=== PATIENT | female | born 1955 | race Caucasian/White ===

== ENCOUNTER → 2023-11-05 13:04 | Outpatient (REF) | payer BC, SELFPAY | LOC: HWRAD 13:04 | PROVIDERS: ATTENDING PHYSICIAN Surgery Plastic and Reconstructive Surgery; FAMILY PHYSICIAN Emergency Medicine | DX: K46.9 Unspecified abdominal hernia without obstruction or gangrene (principal) | CPT/HCPCS: 74177; Q9967 ==

== ENCOUNTER → 2023-12-07 06:42 | Outpatient (REF) | payer BC, SELFPAY ==
[2023-12-07 07:50] LABS: % Basophils 0.5 % (0-2); % Eosinophils 1.8 % (0-6); % Immature Granulocytes 0.2 % (0-0.5); % Lymphocytes 31.5 % (20.5-51.1); % Monocytes 5.2 % (1.7-9.3); % Neutrophils 60.8 % (42.2-75.2); Absolute Eosinophils 0.1 10^3/uL (0-0.7); Absolute Lymphocytes 1.9 10^3/uL (1.2-3.4); Absolute Monocytes 0.3 10^3/uL (0.1-0.6); Absolute Neutrophils 3.7 10^3/uL (1.4-6.5); Hematocrit 38.8 % (37.0-47.0); Hemoglobin 12.6 g/dL (12.0-16.0); Mean Corp Hgb Conc. 32.5 g/dL (33.0-37.0); Mean Corpuscular Hgb 30.8 pg (27.0-31.0); Mean Corpuscular Volume 94.9 fL (81.0-99.0); Mean Platelet Volume 10.4 fL (7.4-10.4); Nucleated Red Blood Cells % 0 %; Platelet Count 221 10^3/uL (130-400); Red Blood Cell Count 4.09 10^6/uL (4.20-5.40); Red Cell Dist. Width 13.3 % (11.5-14.5); White Blood Cell Count 6.1 10^3/uL (4.8-10.8)
[2023-12-07 10:25] LABS: ALT (SGPT) < 10 U/L (0-35); AST (SGOT) 21 U/L (14-36); Albumin 4.4 g/dl (3.5-5.0); Alkaline Phosphatase 87 U/L (38-126); Blood Urea Nitrogen 12 mg/dl (7-17); Calcium 9.5 mg/dl (8.4-10.2); Carbon Dioxide 29 mmol/L (22-30); Chloride 101 mmol/L (98-107); Glucose 89 mg/dl (70-99); Potassium 4.4 mmol/L (3.5-5.1); Sodium 138 mmol/L (135-145); Total Bilirubin 0.9 mg/dl (0.2-1.3); Total Protein 7.3 g/dl (6.3-8.2); eGFR > 60.00
== END ==
LOC: RCS 06:42
PROVIDERS: ATTENDING PHYSICIAN Surgery Plastic and Reconstructive Surgery; FAMILY PHYSICIAN Emergency Medicine
DX: Z01.818 Encounter for other preprocedural examination (principal)
CPT/HCPCS: 36415; 80053; 85025; 93005

== ENCOUNTER 2023-12-19 06:02 | Day surgery (SDC) | payer SELFPAY ==
--- NOTE | 2023-12-12 16:15 | PTCARENOTE ---
Abnormal EKG on 12/07/23. Dr. Kaye aware. He wants the patient to see a creative resource manager prior to surgery. Adri at Dr. Ryan's aware.
--- NOTE | 2023-12-13 08:54 | PTCARENOTE ---
Bijan Pierson contacted regarding the need to expedite a cardiology appointment prior to surgery to address the abnormal EKG.
[2023-12-19] VITALS (14 sets, daily range): BP systolic 5–137; BP diastolic 42–76; BMI 25.7
[2023-12-19] MEDS: NORMOSOL-R 1000 IV (06:36)
[2023-12-19] MEDS: TYLENOL 1000 MG PO (06:36)
--- NOTE | 2023-12-19 07:53 | W.SUR.PREOP ---
Pre-Operative Surgical Note
-
I have examined this patient prior to the performance of the scheduled procedure.
The patient's condition is unchanged from the time of the current History and
Physical and the patient is able to undergo the scheduled procedure.
--- NOTE | 2023-12-19 14:51 | W.IMMPOSTOP ---
Surgical Immed Post Op Note
-
Primary Surgeon: MARIA FERNANDA Champion MD
Assisting Surgeon:
Pre-op Diagnosis: Unacceptable cosmetic appearance
Post-op Diagnosis: Same
Procedure Performed: Bilateral augementation mastopexy, abdominoplasty
Anesthesia Type: General
Specimen / Cultures: Right and Left breast tissue
Estimated Blood Loss: 100cc
Complications: None
Operative Findings: As expected
--- NOTE | 2023-12-19 14:51 | OR.RPT ---
Operative Report
Operative Report
Date of surgery: 12/19/2023
Surgeon: MARIA FERNANDA Champion MD
Preoperative diagnosis: Unacceptable cosmetic appearance
Postoperative diagnosis: Same
Procedure:
1. Bilateral augmentation mastopexy with silicone gel implants
2. Abdominoplasty with diastases repair
Anesthesia: General
Specimens: Left and right breast tissue
Implants: 355 cc moderate profile Sientra silicone gel
Complications: None
EBL: 100 cc
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 She lost significant weight and was unhappy with the appearance of her bilateral breasts and
abdomen. She desired improvement in volume to the bilateral breast via implants. Silicone gel implants were discussed at length including the associated risk of ALCL, rupture, implant rippling malposition, BII as well as the theoretical potential
for exacerbation of her autoimmune disease. Mastopexy was discussed to reposition the tissues of the breast on the chest wall and over the implant. This would require scars around the nipple areolar complex along the inferior fold along the
inframammary fold extending to the lateral chest wall. Risks include wound disruption, implant exposure, nipple areolar necrosis, asymmetry, seroma, hematoma. With regards to her abdomen we discussed abdominoplasty surgery which would involve the
removal of the horizontal aspect of the lower abdominal skin. This will be treated for low transverse scar. This would extend laterally as far as able with her supine. Any underlying diastases or flaccidity of the abdominal wall will be repaired
with sutures. Given the prior umbilical hernia repair there was a questionable viability of her umbilicus. She understand that this may require revision. Risk of DVT PE were reviewed at length. Patient obtained cardiac clearance prior to
surgery. Rheumatology cleared the patient as well. 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
Procedure in detail: Patient was identified preoperatively and the surgical site was confirmed to be the bilateral breast and abdomen. Bilateral mastopexies were drawn using the transposed IM fold for the new nipple position. Due to the
significant amount of lateral chest skin excess, a Lamb pattern would be utilized with notable thoracic extension. Superior medial pedicles would be used for nipple transposition. The skin of the lower abdominal apron was then marked out an
elliptical fashion from above the umbilicus down to just above the pubic hairline. Consents were confirmed and all questions were answered. Patient was taken back to the operating placed supine on table. Anesthesia was induced and the patient was
prepped and draped in the usual sterile fashion. Timeout for patient safety was performed was confirmed that preoperative antibiotics have been administered and bilateral SCDs were in place. Procedure began with the injection 1% lidocaine with
epinephrine in the proposed incisions. Attention was first drawn to the right breast where a 42 mm cookie cutter was used to mikaela out the nipple. Superior medial pedicle was then de-epithelialized. Dissection through the vertical inferior pillar
allowed for submuscular placement of the silicone gel implants. A dual plane method was utilized sparing the overlying pectoralis fascia. After confirming meticulous hemostasis dilute Betadine and antibiotic irrigation were used to irrigate the
breast implant pocket. The skin was reprepped and new gloves were donned and a 355 cc moderate profile Sientra cohesive silicone gel implant was placed using a Sandoval funnel. 2-0 Vicryl's were used to close the implant pocket from the overlying
tissues. The right breast was then tailor tacked to evaluate the need for additional mastopexy attention was then drawn to the left side where the exact same procedure was performed. Superior medial pedicle was de-epithelialized after marking with
a 42 mm cookie cutter. Dissection was along the inferior pole vertical pillar allowed for submuscular placement and dual plane approach to silicone gel breast implant. The pocket was irrigated with dilute Betadine and antibiotic irrigation new
gloves were donned for placement of a 355 cc moderate profile silicone gel implant using a Sandoval funnel. This was also closed with 2-0 Vicryl's and the overlying mastopexy was tailor tacked accordingly. Patient was then sat upright and additional
markings were made to ensure an aesthetic contour of the breast as well as lateral chest wall. Following these markings the patient was returned supine and the tailor tacking was removed and the redundant skin was excised. The nipple to fold
distances were marked to be equal bilaterally at 9 cm. The wounds were then closed with a series of 2-0 Vicryl's followed by 3-0 and 4-0 Monocryl's. INSORB tape was used on the lateral chest wall. Nipple was transposed and inset using 4-0
Monocryl's. Nipple showed good vascularity bilaterally upon inset. Attention was then drawn to the abdomen where the lower abdominal incision was made with a 15 blade. Dissection continued at the level of the abdominal fascia superiorly to the
umbilicus. The umbilicus was dissected free and the continued due to up to the level of the xiphoid. A tunnel along the midline was made to allow for diastases repair. Meticulous hemostasis was ensured and the diastases repair was performed with
a #1 strata fix PDS suture oversewn twice. Half percent Marcaine diluted in normal saline was then used to perform bilateral tap blocks. 2 drains were placed in the redundant skin was tailor tacked at the midline and marked out for additional
excision after the patient was flexed at the waist to approximately 45 degrees. The new umbilical position was then marked out it was determined that the skin looked viable enough for attempt at retaining the prior umbilicus for transposition. The
abdominal incision was closed with a series of 2-0 Vicryl's followed by 3-0 Monocryl and INSORB dasia. 3 oh [place] [facility] barbed sutures were run along the abdominal incision. The drains were sutured in place with 2-0 Prolene's. At the end the case
the counts were incorrect requiring an x-ray this was due to a clerical error at the beginning of the case. X-ray shows no retained foreign bodies and as such the procedure was concluded. Patient was extubated taken the PACU for further care.
[2023-12-19] MEDS: ZOFRAN 4 MG IV (14:53)
[2023-12-19] MEDS: COMPAZINE 5 MG IV (18:21)
== END 2023-12-19 19:11 | disposition home or self-care (01) ==
LOC: COSMETIC 06:02
PROVIDERS: ATTENDING PHYSICIAN Surgery Plastic and Reconstructive Surgery
DX: Z41.1 Encounter for cosmetic surgery (principal)
CPT/HCPCS: 19325; 19316; 88305; 71045; C1729

== ENCOUNTER → 2024-01-01 06:16 | Day surgery (SDC) | payer BC, SELFPAY ==
[2024-01-01] VITALS (11 sets, daily range): BP systolic 116–138; BP diastolic 59–76; BMI 26.0
[2024-01-01] MEDS: TYLENOL 1000 MG PO (11:55)
[2024-01-01] MEDS: NORMOSOL-R 1000 IV (11:56)
--- NOTE | 2024-01-01 14:10 | W.IMMPOSTOP ---
Surgical Immed Post Op Note
-
Primary Surgeon:MARIA FERNANDA Champion MD
Assisting Surgeon:
Pre-op Diagnosis: right breast hematoma
Post-op Diagnosis: same
Procedure Performed: incision and drainage of right breast hematoma
Anesthesia Type: General
Specimen / Cultures: none
Estimated Blood Loss: 10 cc
Complications: none
Operative Findings: as expected
--- NOTE | 2024-01-01 14:12 | OR.RPT ---
Operative Report
Operative Report
date of surgery: 01/01/2024
Surgeon: MARIA FERNANDA Champion MD
Preoperative diagnosis: Right breast hematoma
Postoperative diagnosis: Same
Procedure: #1 incision and drainage of right breast hematoma
EBL: 10 cc
Anesthesia: General
Complications: None
Indications for procedure: Patient is a 68-year-old female previously underwent augmentation mastopexy of the bilateral breast with abdominoplasty. She suffered a delayed hematoma of the right breast. Plan was made for incision and drainage of the
right breast hematoma accordingly. Risks of the procedure were reviewed at length including recurrent hematoma, seroma, capsular contracture. She understood these risk desired to proceed
Procedure in detail: Patient was identified preoperatively and the surgical site was confirmed the right breast. The planned inframammary approach to the implant pocket was marked out. Consents were confirmed and all questions were answered.
Patient was taken back to the operating room placed implant on table. Anesthesia was induced the patient was prepped and draped in usual sterile fashion. ChloraPrep and Betadine was used for skin prep. Timeout for patient safety was performed was
confirmed that bilateral SCDs were in place and preoperative antibiotics administered including 1 g of TXA. Procedure began with the infiltration of 1% lidocaine with epinephrine at the postsurgical site. The prior scar was then opened and the
wound edge was freshened with a 15 blade. The inframammary abdominal skin was de-epithelialized partially to allow for rotation and adequate soft tissue closure of the implant pocket. The implant pocket was then explored and found to be a large
hematoma partially liquefied. There is no infectious sequela. The prior implant and hematoma were removed and the pocket was irrigated thoroughly. Hemostasis and hemostasis was ensured with Bovie electrocautery. After reprepping the skin and
rinsing the pocket with double antibiotic solution and Betadine, a new implant was placed on new gloves and sterile technique. The pocket was then subsequently closed with a series of 2-0 Vicryl sutures followed by 3-0 PDS and 3-0 and 4-0 Monocryl.
Patient tolerated the procedure well was performed without complication all counts were correct at the end the case. She was extubated taken the PACU for further care.
== END ==
LOC: SDS 06:16
PROVIDERS: ATTENDING PHYSICIAN Surgery Plastic and Reconstructive Surgery
DX: N64.89 Other specified disorders of breast (principal); Z98.890 Other specified postprocedural states
CPT/HCPCS: 21501; L8000

== ENCOUNTER 2024-04-10 14:37 | Outpatient (RCR) | payer BC, SELFPAY | END 2024-04-10 23:59 | disposition home or self-care (01) | LOC: RPT 14:37 | PROVIDERS: ATTENDING PHYSICIAN Surgery Plastic and Reconstructive Surgery; FAMILY PHYSICIAN Emergency Medicine | DX: L90.5 Scar conditions and fibrosis of skin (principal); Z98.82 Breast implant status; Z73.6 Limitation of activities due to disability | CPT/HCPCS: 97110; 97140; 97161 ==

== ENCOUNTER 2024-05-13 17:07 | Outpatient (RCR) | payer BC, SELFPAY | END 2024-05-13 23:59 | disposition home or self-care (01) | LOC: RPT 17:07 | PROVIDERS: ATTENDING PHYSICIAN Surgery Plastic and Reconstructive Surgery; FAMILY PHYSICIAN Emergency Medicine | DX: L90.5 Scar conditions and fibrosis of skin (principal); Z98.82 Breast implant status; Z73.6 Limitation of activities due to disability | CPT/HCPCS: 97110; 97112; 97140 ==

== ENCOUNTER 2024-06-02 11:59 | Outpatient (RCR) | payer BC, SELFPAY | END 2024-06-02 23:59 | disposition home or self-care (01) | LOC: RPT 11:59 | PROVIDERS: ATTENDING PHYSICIAN Surgery Plastic and Reconstructive Surgery; FAMILY PHYSICIAN Emergency Medicine | DX: L90.5 Scar conditions and fibrosis of skin (principal); Z98.82 Breast implant status; Z73.6 Limitation of activities due to disability | CPT/HCPCS: 97110; 97140 ==

== ENCOUNTER → 2024-07-31 09:21 | Outpatient (REF) | payer BC, SELFPAY | LOC: REG 09:21 | PROVIDERS: ATTENDING PHYSICIAN Specialist; FAMILY PHYSICIAN Emergency Medicine | DX: K51.919 Ulcerative colitis, unspecified with unspecified complications (principal) | CPT/HCPCS: 83993; 87045; 87046; 87324; 87427; 87449 ==

== ENCOUNTER → 2024-08-21 16:08 | Outpatient (REF) | payer BC, SELFPAY ==
[2024-08-21 16:54] LABS: % Basophils 0.1 % (0-2); % Eosinophils 0.1 % (0-6); % Immature Granulocytes 0.4 % (0-0.5); % Lymphocytes 21.9 % (20.5-51.1); % Monocytes 2.6 % (1.7-9.3); % Neutrophils 74.9 % (42.2-75.2); Absolute Lymphocytes 1.6 10^3/uL (1.2-3.4); Absolute Monocytes 0.2 10^3/uL (0.1-0.6); Absolute Neutrophils 5.4 10^3/uL (1.4-6.5); Hematocrit 31.6 % (37.0-47.0); Hemoglobin 9.4 g/dL (12.0-16.0); Mean Corp Hgb Conc. 29.7 g/dL (33.0-37.0); Mean Corpuscular Hgb 25.3 pg (27.0-31.0); Mean Corpuscular Volume 84.9 fL (81.0-99.0); Mean Platelet Volume 9.2 fL (7.4-10.4); Nucleated Red Blood Cells % 0 %; Platelet Count 369 10^3/uL (130-400); Red Blood Cell Count 3.72 10^6/uL (4.20-5.40); Red Cell Dist. Width 14.9 % (11.5-14.5); White Blood Cell Count 7.3 10^3/uL (4.8-10.8)
[2024-08-21 17:06] LABS: Erythrocyte Sed Rate > 145 mm/hour (0-20)
[2024-08-21 17:16] LABS: ALT (SGPT) < 10 U/L (0-35); AST (SGOT) 14 U/L (14-36); Albumin 4.1 g/dl (3.5-5.0); Alkaline Phosphatase 91 U/L (38-126); Blood Urea Nitrogen 16 mg/dl (7-17); Calcium 9.4 mg/dl (8.4-10.2); Carbon Dioxide 27 mmol/L (22-30); Chloride 100 mmol/L (98-107); Glucose 120 mg/dl (70-99); Potassium 4.9 mmol/L (3.5-5.1); Sodium 135 mmol/L (135-145); Total Bilirubin 0.6 mg/dl (0.2-1.3); Total Protein 6.9 g/dl (6.3-8.2); eGFR > 60.00
[2024-08-21 17:25] LABS: Total Iron Binding Capacity 358 ug/dl (265-497)
[2024-08-21 18:21] LABS: Vitamin B12 735 pg/ml (239-931)
[2024-08-21 19:39] LABS: Hepatitis B Surface Antigen Negative (Negative)
[2024-08-21 19:57] LABS: Hepatitis B Core Ab, Total Negative (Negative); Hepatitis B Surface Antibody Negative
[2024-08-24 04:13] LABS: Vitamin D 1,25 Dihydroxy 41.7 pg/mL (19.9-79.3)
== END ==
LOC: REG 16:08
PROVIDERS: ATTENDING PHYSICIAN Specialist; FAMILY PHYSICIAN Emergency Medicine
DX: K51.50 Left sided colitis without complications (principal)
CPT/HCPCS: 36415; 80053; 82607; 82652; 82728; 83550; 85025; 85652; 86140; 86704; 86706; 87340

== ENCOUNTER → 2025-06-01 06:18 | Day surgery (SDC) | payer BC, SELFPAY | LOC: GI 06:18 | PROVIDERS: ATTENDING PHYSICIAN Specialist | DX: K51.30 Ulcerative (chronic) rectosigmoiditis without complications (principal); D12.0 Benign neoplasm of cecum; D12.5 Benign neoplasm of sigmoid colon; K51.40 Inflammatory polyps of colon without complications; K57.30 Diverticulosis of large intestine without perforation or abscess without bleeding | CPT/HCPCS: 45385; 45380; 88305 ==